=== PATIENT | female | born 2000 | race African-American/Black ===

== ENCOUNTER 2020-11-26 11:12 | Emergency (ER) | payer OTHER, SELFPAY ==
--- NOTE | ~2020-11-26 | CT_ITS ---
EXAMINATION: CT brain wo con DATE: 11/26/2020 13:24 INDICATION: New onset left headaches. Dizziness. TECHNIQUE: Computed tomography (CT) of the head was performed without intravenous contrast. The mA wa s adjusted according to patient size. Iterative reconstruction technique was employed. Exam dose: 60 5.33 mGy-cm total exam DLP. COMPARISON: None FINDINGS: No intracranial mass lesion or hemorrhage or cerebrovascular accident. No midline shift or mass effect. Normal ventricular size. Normal black-white matter differentiation. No subdural or epidur al hematoma. Mastoid air cells and included paranasal sinuses are normally developed and aerated. No fracture or bone destruction of the cranial vault. Orbital contents are unremarkable. IMPRESSION: Negative examination Reviewed, dictated and finalized at [facility]. Reviewed, dictated and finalized at [facility]. IMPRESSION: Negative examination
[2020-11-26 11:29] VITALS: BP 125/75; PULSE 87; RESP 20; TEMP 36.7; O2SAT 100
--- NOTE | 2020-11-26 13:30 | ED.HA ---
HPI - Headache General Chief Complaint: Headache Stated Complaint: dizzy and headaches for a year, angry at people Time Seen by Provider: 11/26/20 12:50 Source: patient Mode of arrival: ambulatory Limitations: no limitations History of Present Illness HPI Narrative: 20-year-old female No significant past medical history Complains of near daily headaches for several months The episodes sometimes have been known to resolve then return on the same days She has not identified any triggers She does take Tylenol which sometimes helps She wears strong corrective lenses and had her eyes checked and was told everything was okay there She does not have a reliable classic migraine aura but does sometimes feel a little dizzy before the onset of headaches They do appear to be quite reliable in terms of starting around the left eye Sometimes there is little nausea but she has never vomited, she has a little light sensitivity but not too bad No fever or neck pain, no recent weight gain, does not complain of allergy or sinus problems Related Data Allergies Allergy/AdvReac Type Severity Reaction Status Date / Time No Known Allergies Allergy Verified 11/26/20 12:50 Review of Systems Review of Systems: All systems reviewed & are unremarkable except as noted in HPI and below Constitutional: Constitutional: Denies chills, Denies fever(s) and Denies headache(s) Eyes: Eyes: Reports change in vision and Reports photophobia ENT: Reports dizziness, Denies headache(s) and Denies sore throat Cardiovascular: Cardiovascular: Denies chest pain and Denies dyspnea Respiratory: Respiratory: Denies cough and Denies dyspnea Gastrointestinal: Gastrointestinal: Reports nausea Genitourinary: Genitourinary: Denies urinary frequency Musculoskeletal: Musculoskeletal: Denies myalgias, Denies deformity and Denies numbness Integumentary/Breasts: Skin/Breast: Denies rash and Denies wounds Neurologic: Denies vertigo, Reports dizziness, Denies syncope, Reports headache(s), Denies focal weakness and Denies numbness Psychiatric: Psychiatric: Reports no additional psychiatric complaints Endocrine: Endocrine: Reports no additional endocrine complaints Hematologic/Lymphatic: Hematologic/Lymphatic: Reports no additional hematologic/lymphatic complaints Allergic/Immunologic: Allergic/Immunologic: Reports no additional allergic/immunologic complaints PMFSH Social History Social History Gender identity (if verbalized by the patient): Female Exam Const: General: cooperative, no acute distress and alert Orientation/consciousness: patient oriented x3 (alert) HENMT: Head: normal to inspection, normocephalic and atraumatic Ears: external ears normal General nose exam: no epistaxis Face and sinus: sinus tenderness (Mild left maxillary sinus tenderness) Eyes: Conjunctivae: conjunctivae normal Pupils: Equal, round and reactive pupils present EOM: EOMs intact bilaterally Neck: Neck: normal visual inspection, no meningeal signs, supple and no JVD Resp: Effort & Inspection: normal respiratory effort Auscultation: clear to auscultation bilaterally and other (BS =) Cardio: Rate: regular rate Rhythm: regular rhythm Heart sounds: no murmurs Skin: General skin exam: normal color and no rashes or lesions noted Rashes: no rashes Neuro: General: patient oriented x3 (alert), moves all extremities, no meningeal signs, no focal motor deficits and CN's II-XI intact bilaterally Speech: normal speech Extrem: General: normal to inspection and no pedal edema Psych: Affect: normal affect Course Vital Signs Vital signs: Vital Signs Temperature 36.7 C 11/26/20 11:29 Pulse Rate 87 11/26/20 11:29 Respiratory Rate 20 11/26/20 11:29 Blood Pressure 125/75 11/26/20 11:29 Pulse Oximetry 100 11/26/20 11:29 Temperature 36.7 C 11/26/20 11:29 Pulse Rate 87 11/26/20 11:29 Respirat
[2020-11-26 14:39] VITALS: BP 126/68; PULSE 80; RESP 18; O2SAT 100
== END 2020-11-26 14:40 | disposition home or self-care (01) ==
PROVIDERS: Emergency Provider Emergency Medicine
DX: R51.9 Headache, unspecified (principal)
CPT/HCPCS: 70450; 99284

== ENCOUNTER 2021-07-24 09:09 | Emergency (ER) | payer OTHER, SELFPAY ==
--- NOTE | ~2021-07-24 | CT_ITS ---
EXAMINATION: CT soft tissue neck w con DATE: 07/24/2021 13:16 INDICATION: Sore throat. TECHNIQUE: Computed tomography (CT) of the neck was performed with 75 mL Omnipaque-350 intravenous co ntrast. Automated exposure control and iterative reconstruction technique were employed. The dose-jaclyn gth product was 611.94 mGy-cm. COMPARISON: None FINDINGS: There is mild bilateral high internal jugular chain lymphadenopathy. For example, a high ri ght internal jugular chain node measures 2.0 x 1.7 cm. There is enlargement of the adenoids and palat ine tonsils. There are areas of relative hypoattenuation in the palatine tonsils, but no well-defined abscess. The cervical carotid arteries are normal. 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 IMPRESSION: 1. Enlargement of the adenoids and palatine tonsils, consistent with inflammation/infection. No absce ss. 2. Mild bilateral high internal jugular chain lymphadenopathy, likely reactive. Reviewed, dictated and finalized at [facility]. [facility]ER IMPRESSION: 1. Enlargement of the adenoids and palatine tonsils, consistent with inflammati on/infection. No abscess. 2. Mild bilateral high internal jugular chain lymphadenopathy, likely reactive.
[2021-07-24 09:13] VITALS: BP 124/92; PULSE 117; RESP 18; TEMP 37.3; O2SAT 100
[2021-07-24 09:55] LABS: Basophils Percent Auto 0.3 % (0.2-1.2); Eosinophils Absolute Auto 0.1 K/mm3 (0-0.3); Hemoglobin 12.3 g/dL (12.0-15.0); Immature Granulocyte Absolute 0.05 K/mm3 (0.00-0.031); Immature Granulocyte Percent A 0.4 % (0-0.5); Lymphocytes Absolute Auto 2.54 K/mm3 (0.9-3.2); Lymphocytes Percent Auto 22.1 % (18.3-44.2); Mean Corpuscular HGB Conc 32.4 g/dl (32-36); Mean Corpuscular Hemoglobin 26.6 pg (26-34); Mean Corpuscular Volume 82.3 fl (80-100); Mean Platelet Volume 9.2 fl (7.4-10.4); Monocytes Absolute Auto 1.1 K/mm3 (0.1-0.6); Monocytes Percent Auto 9.8 % (2.6-8.5); Neutrophils Absolute Auto 7.6 K/mm3 (1.3-6.7); Neutrophils Percent Auto 66.4 % (45.5-73.1); Platelet Count Result 315 k/mm3 (150-375); Red Blood Count 4.62 M/mm3 (4.2-5.4); Red Cell Distribution Width 13.8 % (11.5-14.5); White Blood Count 11.5 K/mm3 (4.5-10.0)
--- NOTE | 2021-07-24 09:57 | ED.GENADULT ---
HPI - General Adult General Chief complaint: Upper Respiratory Infection Stated complaint: Sore Throat Time Seen by Provider: 07/24/21 09:14 Source: patient Mode of arrival: ambulatory Limitations: no limitations History of Present Illness HPI narrative: Patient is a 20-year-old female with chief complaint of sore throat, voice changes over the past 3 days. Patient reports that her symptoms originally began on around June 25 and she was seen in urgent care and told that she tested positive for strep and negative for mono. Patient reports that she was on antibiotics for 10 days and her symptoms did improve, but have now worsened again. Patient denies any fever, chills, shortness of breath, chest pain, nausea, vomiting or diarrhea. Patient reports history of recurrent strep or peritonsillar abscesses. Patient denies having any allergies to any antibiotics or. Patient denies chance of . Related Data Allergies Allergy/AdvReac Type Severity Reaction Status Date / Time No Known Allergies Allergy Verified 07/24/21 09:18 Review of Systems Review of Systems: CONSTITUTIONAL: Denies fever, chills, or sweats. EYES: Denies visual changes, redness, or discharge. ENT: Reports sore throat and voice changes denies rhinorrhea, congestion, or otalgia. CARDIOVASCULAR: Denies chest pain, palpitations, or edema. RESPIRATORY: Denies cough or dyspnea. GASTROINTESTINAL: Denies abdominal pain, nausea, vomiting, or diarrhea. GENITOURINARY: Denies dysuria or hematuria. SKIN: Denies rash or itching. MUSCULOSKELETAL: Denies back pain, joint pain, or myalgia. NEUROLOGIC: Denies headache, numbness, dizziness, or weakness. PSYCHIATRIC: Denies anxiety or depression. [facility] Social History Social History Gender identity (if verbalized by the patient): Female Exam Narrative: GENERAL: Well-appearing, well-nourished, and in no acute distress. HEAD: Normocephalic, atraumatic. EYES: PERRLA and EOMI. ENT: Nares clear, no rhinorrhea or epistaxis. Mucous membranes moist. Oropharynx with tonsillar hypertrophy and exudate right greater than left with tonsillar swelling. Patient is handling her own secretions. muffled voice noted. NECK: Supple. Adenopathy present bilaterally right greater than left. Range of motion intact. CHEST: Clear to auscultation. No respiratory distress. No wheezes rales or rhonchi HEART: Regular rate and rhythm. EXTREMITIES: Normal range of motion. No edema. SKIN: Warm, dry, no rash. NEURO: No focal deficits. Alert and oriented x3. PSYCH: Normal mood and affect. Course Vital Signs Vital signs: Vital Signs Temperature 99.1 F 07/24/21 09:13 Pulse Rate 117 H 07/24/21 09:13 Respiratory Rate 18 07/24/21 09:13 Blood Pressure 124/92 H 07/24/21 09:13 Pulse Oximetry 100 07/24/21 09:13 Temperature 99.1 F 07/24/21 09:13 Pulse Rate 103 H 07/24/21 10:05 Respiratory Rate 20 07/24/21 10:05 Blood Pressure 115/83 07/24/21 10:05 Pulse Oximetry 100 07/24/21 10:05 Medical Decision Making MDM Narrative Medical decision making narrative: Patient pulled out her IV and told the nurse that she has to leave because her ride is leaving. I explained that she would have to sign out AMA if she insisted on leaving because I am concerned for GLASS BENDER which could complicate her airway or cause worsening systemic infection. She reports she will contact her ride to bring her her house treviño and she agrees to stay. HOLLY Cordero will place new IV as patient removed it herself. We were able to replace IV via ultrasound. Patient CT does not show signs of clear abscess. Consult Dr. Carey ENT regarding patient presentation, history, lab work, imaging.He reviewed patient CT and He states that the patient should be on 300 mg of clindamycin 3 times daily and a Medrol Dosepak. Give her a dose of clindamycin in ER to be safe. Patient already given decadron. If she has any emergent symptoms
[2021-07-24 10:01] LABS: Alanine Aminotransferase 24 U/L (4-35); Albumin Level 4.5 g/dL (3.5-5.1); Alkaline Phosphatase 74 U/L (38-126); Anion Gap 8 mmol/L (8-16); Aspartate Amino Transferase 28 U/L (14-36); Bilirubin,Total 0.5 mg/dL (0.2-1.3); Blood Urea Nitrogen 9 mg/dL (7-17); Calcium 9.6 mg/dL (8.4-10.2); Carbon Dioxide 26 mmol/L (22-30); Chloride 100 mmol/L (98-107); Estimated CRCL calculation 168 ml/min; Estimated Glomerular Filt Rate > 60; Glucose 101 mg/dL (65-110); Potassium 3.8 mmol/L (3.4-5.0); Sodium 134 mmol/L (137-145)
[2021-07-24 10:05] VITALS: BP 115/83; PULSE 103; RESP 20; O2SAT 100
[2021-07-24 10:14] LABS: Monoscreen Negative (Negative); Negative Monotest Control Negative (Negative); Positive Monotest Control Positive (Positive)
[2021-07-24 11:41] LABS: Lactic Acid Reflex 0.7 mmol/L (0.7-2.1)
--- NOTE | 2021-07-24 12:31 | PC.NURSE ---
Pt with muffled voice, significant tonsil swelling bilaterally. Attempted IV access unsuccessfully x 2, will have second RN try. Pt explained need for IV with CT scan and possible further medications, verbalized understanding.
[2021-07-24] MEDS: KETOROLAC 15 MG/ML VIAL (*BKC) IV PUSH (14:00)
[2021-07-24] MEDS: CLINDAMYCIN 300 MG in DEXTROSE 5% IN WATER 50 ML 104 MG IVPB (14:25)
[2021-07-24 15:20] VITALS: BP 126/84; PULSE 99; RESP 17; O2SAT 99
== END 2021-07-24 15:22 | disposition home or self-care (01) ==
PROVIDERS: Physician Assistant; Emergency Provider Emergency Medicine; PCP Family Medicine
DX: J03.90 Acute tonsillitis, unspecified (principal)
CPT/HCPCS: 36415; 70491; 80053; 81025; 83605; 85025; 86308; 87081; 87880; 96365; 96375; 99284; J1100; J1885; Q9967

== ENCOUNTER 2022-03-21 15:51 | Emergency (ER) | payer OTHER, SELFPAY ==
[2022-03-21 15:55] VITALS: BP 123/69; PULSE 104; RESP 16; TEMP 36.6; O2SAT 97
--- NOTE | 2022-03-21 16:35 | ED.GENADULT ---
HPI - General Adult General Chief complaint: Unspecified Stated complaint: think strep is coming Time Seen by Provider: 03/21/22 15:53 History of Present Illness HPI narrative: 21-year-old female presents to the emergency room for evaluation of a sore throat. Patient states I feel like strep is coming on . Patient is also complaining of sinus congestion, postnasal drip, cough. Patient's younger sibling was recently diagnosed with COVID. Related Data Allergies Allergy/AdvReac Type Severity Reaction Status Date / Time No Known Allergies Allergy Verified 03/21/22 15:51 Review of Systems Review of Systems: CONSTITUTIONAL: Denies fever, chills, or sweats. EYES: Denies visual changes, redness, or discharge. ENT: Reports rhinorrhea, congestion, and sore throat CARDIOVASCULAR: Denies chest pain, palpitations, or edema. RESPIRATORY: Denies cough or dyspnea. GASTROINTESTINAL: Denies abdominal pain, nausea, vomiting, or diarrhea. GENITOURINARY: Denies dysuria or hematuria. SKIN: Denies rash or itching. MUSCULOSKELETAL: Denies back pain, joint pain, or myalgia. NEUROLOGIC: Denies headache, numbness, dizziness, or weakness. PSYCHIATRIC: Denies anxiety or depression. [facility] Social History Social History Gender identity (if verbalized by the patient): Female Exam Narrative: GENERAL: Well-appearing, well-nourished, no physical limitations, and in no acute distress. HEAD: Normocephalic, atraumatic. EYES: Conjunctivae normal, PERRLA and EOMI. ENT: External nose normal, Nares clear, no rhinorrhea or epistaxis. Mucous membranes moist. tonsillar hypertrophy +3 tonsillar columns without exudate. External ears normal, bilateral TMs normal bilaterally NECK: Supple. No adenopathy or masses. CHEST: Clear to auscultation. No respiratory distress. No wheezes rales or rhonchi. No tenderness. HEART: Regular rate and rhythm. No murmur heard. Normal peripheral pulses. EXTREMITIES: Normal range of motion. No edema. No clubbing or cyanosis SKIN: Warm, dry, no rash. No noted wounds NEURO: No focal deficits. Alert and oriented x3. MAEW. CN's II-XI intact bilaterally, normal gait PSYCH: Cooperative. Normal mood and affect. Course Vital Signs Vital signs: Vital Signs Temperature 36.6 C 03/21/22 15:55 Pulse Rate 104 H 03/21/22 15:55 Respiratory Rate 16 03/21/22 15:55 Blood Pressure 123/69 03/21/22 15:55 Pulse Oximetry 97 03/21/22 15:55 Temperature 36.6 C 03/21/22 15:55 Pulse Rate 104 H 03/21/22 15:55 Respiratory Rate 16 03/21/22 15:55 Blood Pressure 123/69 03/21/22 15:55 Pulse Oximetry 97 03/21/22 15:55 Medical Decision Making Vital Signs Vital Signs: Vital Signs Temperature 36.6 C 03/21/22 15:55 Pulse Rate 104 H 03/21/22 15:55 Respiratory Rate 16 03/21/22 15:55 Blood Pressure 123/69 03/21/22 15:55 Pulse Oximetry 97 03/21/22 15:55 Temperature 36.6 C 03/21/22 15:55 Pulse Rate 104 H 03/21/22 15:55 Respiratory Rate 16 03/21/22 15:55 Blood Pressure 123/69 03/21/22 15:55 Pulse Oximetry 97 03/21/22 15:55 Lab Data Labs: Lab Results 03/21/22 03/21/22 Range/Units 16:37 16:44 Monoscreen Negative (Negative) SARS-CoV-2 RNA (RT-PCR) Negative Strep Screen Presumptive Negative *(Reference Range: Negative)* Discharge Plan Discharge Clinical Impression: Acute sore throat, Viral illness Patient Disposition: Home, Self-Care Condition: Stable Instructions: Antibiotic Form, Viral Syndrome (ED) Prescriptions: New prednisone 20 mg tablet 40 mg PO DAILY 5 Days Qty: 10 0RF pseudoephedrine HCl 30 mg tablet 30 mg PO Q4-6H PRN (Reason: nasal congestion) Qty: 30 0RF Rx Instructions: DNExceed 4 doses/24h Follow-up/Referrals: Florin León MD [Primary Care Provider] - Time of Disposition: 18:16
[2022-03-21 17:20] LABS: Monoscreen Negative (Negative); Negative Monotest Control Negative (Negative); Positive Monotest Control Positive (Positive)
[2022-03-21 17:34] LABS: SARS-CoV-2 RNA PCR Negative
== END 2022-03-21 18:30 | disposition home or self-care (01) ==
PROVIDERS: Emergency Provider Nurse Practitioner Family; PCP Family Medicine
DX: J02.9 Acute pharyngitis, unspecified (principal); B34.9 Viral infection, unspecified; Z20.822 Contact with and (suspected) exposure to COVID-19
CPT/HCPCS: 36415; 86308; 87081; 87880; 96372; 99283; C9803; J1100; U0003; U0005

== ENCOUNTER 2023-04-28 15:06 | Emergency (ER) | payer OTHER, SELFPAY ==
--- NOTE | ~2023-04-28 | CT_ITS ---
EXAMINATION: CT brain wo con DATE: 04/28/2023 17:34 INDICATION: Headache. TECHNIQUE: Computed tomography (CT) of the head was performed without intravenous contrast. The mA wa s adjusted according to patient size. Iterative reconstruction technique was employed. The dose-lengt h product was 605.33 mGy-cm. COMPARISON: Head CT 11/26/2020 FINDINGS: There is no intracranial hemorrhage, acute infarction, or abnormal intracranial mass lesion . The ventricles are normal in size. There is an empty sella. There is mild mucosal thickening in the ethmoid sinuses. The mastoid air cells are normal. IMPRESSION: 1. Empty sella. Reviewed, dictated and finalized at [facility]. IMPRESSION: 1. Empty sella.
[2023-04-28 15:09] VITALS: BP 109/74; PULSE 85; RESP 16; TEMP 36.9; O2SAT 100
[2023-04-28 17:05] VITALS: BP 128/81; PULSE 84; RESP 17; O2SAT 100
--- NOTE | 2023-04-28 17:12 | ED.HA ---
HPI - Headache General Chief Complaint: Headache Stated Complaint: headache Time Seen by Provider: 04/28/23 17:03 History of Present Illness HPI Narrative: 22-year-old female, LMP 3 to 4 weeks ago reports for evaluation of a headache since she woke up this morning at 6 AM. Patient reports the headache as pressure and states feels like my head is going to explode . She reports the headache is in the frontal lobe and occiput with associated photophobia. She denies congestion, cough, fever, neck pain or nuchal rigidity, chest pain or shortness of breath, nausea, vomiting, diarrhea, abdominal pain. Denies recent injury or trauma, vision changes, focal numbness or weakness. Related Data Allergies Allergy/AdvReac Type Severity Reaction Status Date / Time No Known Allergies Allergy Verified 04/28/23 17:06 Review of Systems Review of Systems: CONSTITUTIONAL: Denies fever, chills EYES: Denies visual changes, redness, or discharge. ENT: Denies rhinorrhea, congestion, sore throat, or otalgia. CARDIOVASCULAR: Denies chest pain, palpitations, or edema. RESPIRATORY: Denies cough or dyspnea. GASTROINTESTINAL: Denies abdominal pain, nausea, vomiting, or diarrhea. GENITOURINARY: Denies dysuria or hematuria. SKIN: Denies rash or itching. MUSCULOSKELETAL: Denies back pain, joint pain, or myalgia. NEUROLOGIC: See HPI PSYCHIATRIC: Denies anxiety or depression. [facility] Social History Social History Gender identity (if verbalized by the patient): Female Exam Narrative: GENERAL: Well-appearing, in no acute distress. HEAD: Normocephalic EYES: PERRLA ENT: Nares clear. Mucous membranes moist. Oropharynx without tonsillar hypertrophy exudate or other lesions. NECK: Supple. No nuchal rigidity. CHEST: No respiratory distress. Clear to auscultation, no adventitious breath sounds. HEART: Regular rate and rhythm. No murmur heard. Normal peripheral pulses. ABDOMEN: Soft, nontender, normal active bowel sounds. EXTREMITIES: Normal range of motion. No edema. SKIN: Warm, dry, no rash. NEURO: No focal deficits. Alert and oriented x3. Cranial nerves II through XII intact. Strength 5/5 in BUE and BLE. Sensation intact throughout. Normal finger-nose. No pronator drift. Ambulatory without ataxia PSYCH: Normal mood and affect. Course Vital Signs Vital signs: Vital Signs Temperature 98.5 F 04/28/23 15:09 Pulse Rate 85 04/28/23 15:09 Respiratory Rate 16 04/28/23 15:09 Blood Pressure 109/74 04/28/23 15:09 Pulse Oximetry 100 04/28/23 15:09 Oxygen Delivery Room Air 04/28/23 15:09 Temperature 98.5 F 04/28/23 15:09 Pulse Rate 84 04/28/23 17:05 Respiratory Rate 17 04/28/23 17:05 Blood Pressure 128/81 04/28/23 17:05 Pulse Oximetry 100 04/28/23 17:05 Oxygen Delivery Room Air 04/28/23 15:09 MDM - Headache MDM Narrative Medical decision making narrative: MSE by GUERRERO in triage. 22 y/o F reports for evaluation of tension type headache. Vitals are stable. No red flag headache signs. Given no prior history of headaches, CT brain obtained showing an empty sella. Patient received a headache cocktail. Prior to discussing imaging results, the patient eloped. I was unable to discuss CT results or provide discharge paperwork. I was also unable to discuss follow-up or ED return precautions. Lab Data Labs: UCG Bedside Result Negative Reference Range: Negative Discharge Plan Discharge Clinical Impression: Tension headache, Empty sella Patient Disposition: Elopement After Seen by Prov Condition: Stable Prescriptions: No Action prednisone 20 mg tablet 40 mg PO DAILY 5 Days Qty: 10 0RF pseudoephedrine HCl 30 mg tablet 30 mg PO Q4-6H PRN (Reason: nasal congestion) Qty: 30 0RF Rx Instructions: DNExceed 4 doses/24h Follow-up/Referrals: UNK
[2023-04-28] MEDS: KETOROLAC 30 MG/ML VIAL (*BKC) IV PUSH (17:22)
[2023-04-28] MEDS: PROCHLORPERAZINE EDISYLATE 10 MG/2 ML VIAL IV PUSH (17:22)
[2023-04-28] MEDS: diphenhydrAMINE HCl INJ 50 MG/ML VIAL 12.5 MG IV PUSH (17:23)
== END 2023-04-28 18:08 | disposition left against medical advice (07) ==
LOC: ANHED 18:22
PROVIDERS: Emergency Provider Physician Assistant
DX: G44.209 Tension-type headache, unspecified, not intractable (principal); E23.6 Other disorders of pituitary gland
CPT/HCPCS: 70450; 81025; 96374; 96375; 99284; J0780; J1200; J1885

== ENCOUNTER 2023-08-06 10:27 | Emergency (ER) | payer OTHER, SELFPAY ==
--- NOTE | ~2023-08-06 | CT_ITS ---
Non-contrast Head CT History: Headache COMPARISON: 04/28/2023 Technique: Axial non-contrast imaging of the brain was performed. Dose reduction technique was used on this scan by utilizing automated exposure control and iterative reconstruction technique. The dose -length product (DLP) was 605.33 mGy-cm. Findings: There is no evidence of intracranial hemorrhage, mass lesion, or acute infarct. Brain par enchyma appears normal. The ventricles and subarachnoid spaces are normal in size. The calvarium ap pears normal. The visualized paranasal sinuses and mastoid air cells are clear. Impression: No significant abnormality seen. Reviewed, dictated and finalized at [facility]. [facility] Impression: No significant abnormality seen.
[2023-08-06 10:47] VITALS: BP 114/47; PULSE 85; RESP 18; TEMP 36.9; O2SAT 100
--- NOTE | 2023-08-06 12:49 | ED.HA ---
HPI - Headache General Chief Complaint: Headache Stated Complaint: headache Time Seen by Provider: 08/06/23 12:11 Source: patient Mode of arrival: ambulatory Limitations: no limitations History of Present Illness HPI Narrative: This is a 22 year old female that presents to the ER for headache. Ongoing over the last 3 days. Reports a pressure like headache. Associated with nausea and vomiting. No recent injuries or trauma. Patient also endorsing some fatigue. Denies fever, vision changes, numbness or weakness. Related Data Allergies Allergy/AdvReac Type Severity Reaction Status Date / Time No Known Allergies Allergy Verified 08/06/23 12:51 Review of Systems Review of Systems: CONSTITUTIONAL: Denies fever EYES: Denies visual changes GASTROINTESTINAL: Reports nausea, vomiting All systems reviewed & are unremarkable except as noted in HPI and below PMFSH Past Medical History Medical History (Updated 08/06/23 @ 14:48 by Erika Rondon PA-C) No active medical problems Social History Social History (Updated 08/06/23 @ 12:58 by Erika Rondon PA-C) Smoking status: Never smoker Substance use: never Exam Narrative: GENERAL: Well-appearing, well-nourished, and in no acute distress. HEAD: Normocephalic, atraumatic. EYES: PERRLA and EOMI. ENT: Nares clear, no rhinorrhea or epistaxis. Mucous membranes moist. Oropharynx without tonsillar hypertrophy exudate or other lesions. Bilateral TMs pearly black non-bulging NECK: Supple. No adenopathy or masses. CHEST: Clear to auscultation. No respiratory distress. No wheezes rales or rhonchi HEART: Regular rate and rhythm. No murmur heard. Normal peripheral pulses. EXTREMITIES: Normal range of motion. No edema. Strength equal in bilateral upper and lower extremities (5/5) SKIN: Warm, dry, no rash. NEURO: No focal deficits. Alert and oriented x3. Cranial nerves 2-12 grossly intact PSYCH: Normal mood and affect Course Course Emergency Course: Patient updated on her workup. Resting comfortably Vital Signs Vital signs: Vital Signs Temperature 98.4 F 08/06/23 10:47 Pulse Rate 85 08/06/23 10:47 Respiratory Rate 18 08/06/23 10:47 Blood Pressure 114/47 L 08/06/23 10:47 Pulse Oximetry 100 08/06/23 10:47 Oxygen Delivery Room Air 08/06/23 10:47 Temperature 98 F 08/06/23 14:20 Pulse Rate 90 08/06/23 14:20 Respiratory Rate 18 08/06/23 14:20 Blood Pressure 114/83 08/06/23 14:20 Pulse Oximetry 99 08/06/23 14:20 Oxygen Delivery Room Air 08/06/23 10:47 MDM - Headache MDM Narrative Medical decision making narrative: This is a 22-year-old female that presents to the emergency department for headache ongoing over the last couple of days. Patient also endorsing fatigue. She is afebrile and nontoxic appearing. Her vitals are stable. CBC and metabolic panel without concerning findings. TSH is normal. CT brain without acute findings. Patient reports relief with IV fluids and Tylenol. Patient was instructed to have follow-up with primary provider. She was given warnings to return to the ER Differential Diagnosis Differential diagnosis: Likely migraine, tension headache and subarachnoid hemorrhage Lab Data Attestation: I reviewed the patient's lab results. 08/06/23 13:01 08/06/23 13:01 Labs: Lab Results 08/06/23 Range/Units 13:01 WBC 7.2 (4.5-10.0) K/mm3 RBC 4.77 (4.2-5.4) M/mm3 Hgb 12.6 (12.0-15.0) g/dL Hct 39.7 (37.0-47.0) % MCV 83.2 (80-100) fl MCH 26.4 (26-34) pg MCHC 31.7 L (32-36) g/dl RDW 14.3 (11.5-14.5) % Plt Count 349 (150-375) k/mm3 MPV 9.5 (7.4-10.4) fl Immature Gran % (Auto) 0.3 (0-0.5) % Neut % (Auto) 49.9 (45.5-73.1) % Lymph % (Auto) 39.6 (18.3-44.2) % Jerome % (Auto) 7.4 (2.6-8.5) % Eos % (Auto) 2.2 (0-4.4) % Baso % (Auto) 0.6 (0.2-1.2) % Lymph # (Auto) 2.83 (0.9-3.2) K/mm3 Jerome # (Auto) 0.5 (0.1-0.6) K/mm3 Eos # (Aut
[2023-08-06 13:07] LABS: Basophils Percent Auto 0.6 % (0.2-1.2); Eosinophils Absolute Auto 0.2 K/mm3 (0-0.3); Eosinophils Percent Auto 2.2 % (0-4.4); Hematocrit 39.7 % (37.0-47.0); Hemoglobin 12.6 g/dL (12.0-15.0); Immature Granulocyte Absolute 0.02 K/mm3 (0.00-0.031); Immature Granulocyte Percent A 0.3 % (0-0.5); Lymphocytes Absolute Auto 2.83 K/mm3 (0.9-3.2); Lymphocytes Percent Auto 39.6 % (18.3-44.2); Mean Corpuscular HGB Conc 31.7 g/dl (32-36); Mean Corpuscular Hemoglobin 26.4 pg (26-34); Mean Corpuscular Volume 83.2 fl (80-100); Mean Platelet Volume 9.5 fl (7.4-10.4); Monocytes Absolute Auto 0.5 K/mm3 (0.1-0.6); Monocytes Percent Auto 7.4 % (2.6-8.5); Neutrophils Absolute Auto 3.6 K/mm3 (1.3-6.7); Neutrophils Percent Auto 49.9 % (45.5-73.1); Platelet Count Result 349 k/mm3 (150-375); Red Blood Count 4.77 M/mm3 (4.2-5.4); Red Cell Distribution Width 14.3 % (11.5-14.5); White Blood Count 7.2 K/mm3 (4.5-10.0)
[2023-08-06 13:17] LABS: Alanine Aminotransferase 20 U/L (6-35); Albumin Level 4.4 g/dL (3.5-5.1); Alkaline Phosphatase 59 U/L (38-126); Anion Gap 7 mmol/L (8-16); Aspartate Amino Transferase 26 U/L (14-36); Bilirubin,Total 0.4 mg/dL (0.2-1.3); Blood Urea Nitrogen 10 mg/dL (7-17); Calcium 9.4 mg/dL (8.4-10.2); Carbon Dioxide 26 mmol/L (22-30); Chloride 106 mmol/L (98-107); Estimated Glomerular Filt Rate > 60; Glucose 100 mg/dL (65-110); Potassium 3.9 mmol/L (3.4-5.0); Sodium 139 mmol/L (137-145)
[2023-08-06] MEDS: SODIUM CHLORIDE 0.9% IV 1,000 ML 999 ML IV CONT (13:26)
[2023-08-06] MEDS: ACETAMINOPHEN 500 MG TABLET 1000 MG PO (13:26)
[2023-08-06 14:20] VITALS: BP 114/83; PULSE 90; RESP 18; TEMP 36.6; O2SAT 99
[2023-08-06 15:05] LABS: Thyroid Stimulating Hormone Reflex 0.938 uIU/mL (0.465-4.68)
== END 2023-08-06 15:39 | disposition home or self-care (01) ==
PROVIDERS: Emergency Provider Physician Assistant; PCP Pediatrics
DX: R51.9 Headache, unspecified (principal)
CPT/HCPCS: 36415; 70450; 80053; 84443; 85025; 96360; 99284; A9270; J7030

== ENCOUNTER 2024-06-23 10:05 | Emergency (ER) | payer OTHER, SELFPAY ==
--- NOTE | ~2024-06-23 | CT_ITS ---
EXAMINATION: CT abdomen pelvis w con DATE: 06/23/2024 11:41 INDICATION: Pelvic pain TECHNIQUE: Computed tomography (CT) of the abdomen and pelvis was performed with 100 mL Omnipaque-350 intravenous contrast. Automated exposure control and iterative reconstruction technique were employe d. The dose-length product was 1122.36 mGy-cm. COMPARISON: None FINDINGS: Mild discoid atelectasis in the right middle lobe. Heart size is normal. No pericardial or pleural ef fusion. Liver, gallbladder, spleen, pancreas, bilateral adrenal glands and left kidney are normal. Th ere is a small region of hypoenhancement at the lower pole the right kidney. Bladder, uterus and bila teral adnexa are unremarkable. Bowels including the appendix are normal. Small fat-containing umbilic al hernia. No free intraperitoneal gas or fluid. No pathologically enlarged abdominal or pelvic lymph adenopathy. Bones are unremarkable. IMPRESSION: 1. Small region of hypoenhancement at the lower pole of the right kidney suspicious for pyelonephriti s with differential including scarring related to prior infection or infarction. Correlate with urina lysis. No other acute intra-abdominal/pelvic process. Reviewed, dictated and finalized at location A. [facility] IMPRESSION: 1. Small region of hypoenhancement at the lower pole of the right kidney suspic ious for pyelonephritis with differential including scarring related to prior i nfection or infarction. Correlate with urinalysis. No other acute intra-abdomin al/pelvic process.
[2024-06-23 10:20] VITALS: BP 159/74; PULSE 89; RESP 16; TEMP 36.6; O2SAT 98
--- NOTE | 2024-06-23 10:29 | ED_ITS ---
HPI - Abdominal Pain General Chief Complaint: Abdominal Pain Stated Complaint: pelvic pain Time Seen by Provider: 06/23/24 10:28 Source: patient History of Present Illness HPI narrative: 23 YEARS OLD FEMALE COMPLAINING OF SUPRAPUBIC TENDERNESS FOR A WHILE. 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 PATIENT DENIES ANY FEVER, CHILLS, NAUSEA, VOMITING PATIENT REPORT DIARRHEA FOR THE LAST 2 DAYS LIQUID STOOL, UP TO 6 TIMES A DAY FOR 2 DAYS Related Data Allergies Allergy/AdvReac Type Severity Reaction Status Date / Time No Known Allergies Allergy Verified 08/07/23 10:18 Review of Systems 2 Review of Systems: All systems reviewed & are unremarkable except as noted in HPI and below PMFSH Past Medical History Medical History No active medical problems Social History Social History Smoking status: Never smoker Substance use: never Gender identity (if verbalized by the patient): Female Exam 2 Narrative: GENERAL APPEARANCE: WELL-DEVELOPED, WELL-NOURISHED SKIN: NORMAL COLOR HEAD: NORMOCEPHALIC, NONTRAUMATIC EYES: CLEAR CONJUNCTIVA ENT: OROPHARYNX NORMAL, EARS NORMAL, NOSE NORMAL NECK: SUPPLE, NONTENDER CHEST AND RESPIRATORY: AIRWAY PATENT, NO RESPIRATORY DISTRESS, NO ACCESSORY MUSCLE USE HEART: REGULAR RATE/RHYTHM ABDOMEN: SOFT, SLIGHT SUPRAPUBIC TENDERNESS, NO ORGANOMEGALY, QUIET BOWEL SOUNDS MUSCULOSKELETAL: NORMAL RANGE OF MOTION, NONTENDER BACK NEUROLOGIC: ALERT AND ORIENTED ?3, PERSONAL FINANCIAL COUNSELOR IS NORMAL TESTED, NO GROSS MOTOR DEFICIT Course Course Emergency Course: PATIENT PRESENTS WITH SUPRAPUBIC PAIN VITAL SIGNS SHOWING BLOOD PRESSURE 159/74 IMPROVED DOWN TO 135/94 WITHOUT ANY MEDICATIONS PHYSICAL EXAMINATION SHOWING SLIGHT TENDERNESS SUPRAPUBIC AREA OTHERWISE INSIGNIFICANT FINDINGS DIFFERENTIAL DIAGNOSIS INCLUDE URINARY TRACT INFECTION, CONSTIPATION, COLITIS, DIVERTICULITIS, ABDOMINAL WALL MUSCLE PAIN BLOOD WORKUP TODAY INCLUDES CBC, CMP, LIPASE SHOWED NO ACUTE ABNORMALITIES URINALYSIS SHOWED NO EVIDENCE OF INFECTION CT ABDOMEN AND PELVIS IV CONTRAST SHOWED SMALL REGION OF HYPOENHANCEMENT AT THE LOWER POLE OF THE RIGHT KIDNEY SUSPICIOUS FOR PYELONEPHRITIS, SCARRING RELATED TO PRIOR INFECTION OR INFARCTION. I BELIEVE HIGH LIKELY RELATED TO SCARRING SECONDARY TO PRIOR INFECTION. CURRENTLY PATIENT HAVE NO PAIN AT THE FLANK AREA BILATERALLY, URINE IS CLEAN, NO PYELONEPHRITIS AT THIS TIME. PATIENT WAS ADVISED TO TAKE TYLENOL, IBUPROFEN NEEDED AND FOLLOW-UP WITH OBGYN. THE PT WAS DISCHARGED TO HOME.THE PT,S CONDITION UPON DISCHARGE WAS FAIR,EDUCATION WAS PROVIDED TO THE PT IN REFERENCE TO THE FINAL IMPRESSION,DISCHARGE STUDY RESULTS,TREATMENT,PROGNOSIS AND NEED FOR FOLLOW UP . Vital Signs Vital signs: Vital Signs Temperature 36.6 C 06/23/24 10:20 Pulse Rate 89 06/23/24 10:20 Respiratory Rate 16 06/23/24 10:20 Blood Pressure 159/74 H 06/23/24 10:20 Pulse Oximetry 98 06/23/24 10:20 Oxygen Delivery Room Air 06/23/24 10:20 Temperature 36.6 C 06/23/24 10:20 Pulse Rate 85 06/23/24 12:19 Respiratory Rate 16 06/23/24 12:19 Blood Pressure 135/94 H 06/23/24 12:19 Pulse Oximetry 98 06/23/24 12:19 Oxygen Delivery Room Air 06/23/24 10:20 MDM - Abdominal Pain Lab Data 06/23/24 10:52 06/23/24 10:52 Labs: Lab Results 06/23/24 06/23/24 06/23/24 Range/Units 10:51 10:52 10:56 WBC 7.3 (4.5-10.0) K/mm3 RBC 4.74 (4.2-5.4) M/mm3 Hgb 12.8 (12.0-15.0) g/dL Hct 39.5 (37.0-47.0) % MCV 83.3 (80-100) fl MCH 27.0 (26-34) pg MCHC 32.4 (32-36) g/dl RDW 13.7 (11.5-14.5) % Plt Count 318 (150-375) k/mm3 MPV 9.4 (7.4-10.4) fl Immature Gran % (Auto) 0.5 (0-0.5) % Neut % (Auto) 43.3 L (45.5-73.1) % Lymph % (Auto) 44.6 H (18.3-44.2) % [place] % (Auto) 9.3 H (2.6-8.5) % Eos % (Auto) 1.6 (0-4.4) % Baso % (Auto) 0.7 (0.2-1.2) % Lymph # (Auto) 3.25 H (0.9-3.2) K/mm3 [place] # (Auto) 0.7 H (0.1-0.6) K/mm3 Eos # (Auto) 0.1 (0-0.3) K/mm3 Baso # (Auto) 0.1 (0.0-0.1) K/mm3 Abs Immat Gran (auto) 0.04 H (0.00-0.031) K/mm3 Absolute Neuts (auto) 3.1 (1.3-6.7) K/mm3 Absolute Nucleated RBC 0.000 (0.0-0.012) K/mm3 Nucleated RBC % 0.0 (0.0-0.2) % Sodium 136 L (137-145) mmol/L Potassium 4.4 (3.4-5.0) mmol/L Chloride 105 (98-107) mmol/L Carbon Dioxide 29 (22-30) mmol/L Anion Gap 2 L (4-12) mmol/L BUN 12 (7-17) mg/dL Creatinine 0.50 L (0.7-1.0) mg/dL Estim Creat Clear Calc 178 ml/min Estimated GFR > 60 (59 - ) Glucose 90 (65-110) mg/dL Calcium 9.8 (8.4-10.2) mg/dL Total Bilirubin 0.3 (0.2-1.3) mg/dL AST 23 (14-36) U/L ALT 18 (6-35) U/L Alkaline Phosphatase 58 (38-126) U/L Total Protein 8.0 (6.3-8.2) g/dL Albumin 4.3 (3.5-5.1) g/dL Lipase 53 (23-300) U/L Urine Color Yellow (Yellow) Urine Appearance Cloudy H (Clear) Urine pH 7.0 (5.0-9.0) Ur Specific [place] 1.028 (1.001-1.035) Urine Protein Negative (Negative) mg/dL Urine Glucose (UA) Negative (Negative) mg/dL Urine Ketones Negative (Negative) mg/dL Ur Blood (Man) Negative (Negative) Urine Nitrate Negative (Negative) Urine Bilirubin Negative (Negative) Urine Urobilinogen 0.2 (<2.0) mg/dL Leukocyte Esterase Rfl Negative (Negative) BRAVO/UL Urine RBC 0-2 (0-2) /hpf Urine WBC 0-5 (0-3) /hpf Ur Squamous Epith Cells Many H (Few) /hpf Urine Bacteria 1+ H /hpf Urine Casts 0-2 POC Urine HCG, Qual Negative (Negative) Imaging Data Radiologist's impression: ITS Impressions Abdomen/Pelvis CT 06/23/24 11:52 IMPRESSION: 1. Small region of hypoenhancement at the lower pole of the right kidney suspicious for pyelonephritis with differential including scarring related to prior infection or infarction. Correlate with urinalysis. No other acute intra- abdominal/pelvic process. Critical Care Time Critical Care Time Critical Care Time: No Discharge Plan Discharge Clinical Impression: Pelvic pain Condition: Stable Instructions: Pelvic Pain in Women (ED) Additional Instructions: RETURN IF SYMPTOMS ARE WORSENING , CALL YOUR FAMILY PHYSICIAN FOR APPOINTMENT, TAKE TYLENOL, IBUPROFEN NEEDED FOR ACHES AND PAIN, CONTINUE HOME MEDICATIONS. Patient Language: Argentine Prescriptions: No Action prednisone 20 mg tablet 40 mg PO DAILY 5 Days Qty: 10 0RF pseudoephedrine HCl 30 mg tablet 30 mg PO Q4-6H PRN (Reason: nasal congestion) Qty: 30 0RF Rx Instructions: DNExceed 4 doses/24h Follow-up/Referrals: Romelia,Tawanda Bolanos MD [Primary Care Provider] - Stand Alone Forms: Work/School Release IP
[2024-06-23 10:58] LABS: BEDSIDEPREGUCG Negative (Negative)
[2024-06-23 10:59] LABS: Basophils Absolute Auto 0.1 K/mm3 (0.0-0.1); Basophils Percent Auto 0.7 % (0.2-1.2); Eosinophils Absolute Auto 0.1 K/mm3 (0-0.3); Eosinophils Percent Auto 1.6 % (0-4.4); Hematocrit 39.5 % (37.0-47.0); Hemoglobin 12.8 g/dL (12.0-15.0); Immature Granulocyte Absolute 0.04 K/mm3 (0.00-0.031); Immature Granulocyte Percent A 0.5 % (0-0.5); Lymphocytes Absolute Auto 3.25 K/mm3 (0.9-3.2); Lymphocytes Percent Auto 44.6 % (18.3-44.2); Mean Corpuscular HGB Conc 32.4 g/dl (32-36); Mean Corpuscular Volume 83.3 fl (80-100); Mean Platelet Volume 9.4 fl (7.4-10.4); Monocytes Absolute Auto 0.7 K/mm3 (0.1-0.6); Monocytes Percent Auto 9.3 % (2.6-8.5); Neutrophils Absolute Auto 3.1 K/mm3 (1.3-6.7); Neutrophils Percent Auto 43.3 % (45.5-73.1); Platelet Count Result 318 k/mm3 (150-375); Red Blood Count 4.74 M/mm3 (4.2-5.4); Red Cell Distribution Width 13.7 % (11.5-14.5); White Blood Count 7.3 K/mm3 (4.5-10.0)
[2024-06-23] MEDS: SODIUM CHLORIDE 0.9% IV 1,000 ML 999 ML IV CONT (11:04)
[2024-06-23 11:07] LABS: Add Urine Microscopic? YES; Appearance Urine Cloudy (Clear); Bacteria Urine 1+ /hpf; Bilirubin Urine Negative (Negative); Blood Urine Negative (Negative); Color Urine Yellow (Yellow); Glucose Urine UA Negative (Negative); Ketones Urine Negative (Negative); Leukocyte Esterase Ur Negative LEU/UL (Negative); Nitrate Urine Negative (Negative); Non Pathogenic Casts 0-2; Protein Urine Negative (Negative); RBC Urine 0-2 /hpf (0-2); Specific Grav Ur 1.028 (1.001-1.035); Squamous Epithelial Cell Urine Many /hpf (Few); Urobilinogen Urine 0.2 mg/dL (<2.0); WBC Urine 0-5 /hpf (0-3)
[2024-06-23 11:23] LABS: Alanine Aminotransferase 18 U/L (6-35); Albumin Level 4.3 g/dL (3.5-5.1); Alkaline Phosphatase 58 U/L (38-126); Anion Gap 2 mmol/L (4-12); Aspartate Amino Transferase 23 U/L (14-36); Bilirubin,Total 0.3 mg/dL (0.2-1.3); Blood Urea Nitrogen 12 mg/dL (7-17); Calcium 9.8 mg/dL (8.4-10.2); Carbon Dioxide 29 mmol/L (22-30); Chloride 105 mmol/L (98-107); Estimated CRCL calculation 178 ml/min; Estimated Glomerular Filt Rate > 60; Glucose 90 mg/dL (65-110); Lipase 53 U/L (23-300); Potassium 4.4 mmol/L (3.4-5.0); Sodium 136 mmol/L (137-145)
[2024-06-23 12:19] VITALS: BP 135/94; PULSE 85; RESP 16; O2SAT 98
== END 2024-06-23 13:07 | disposition home or self-care (01) ==
PROVIDERS: Physician Assistant; Emergency Provider Emergency Medicine; PCP Pediatrics
DX: R10.2 Pelvic and perineal pain (principal); Z87.440 Personal history of urinary (tract) infections; R93.421 Abnormal radiologic findings on diagnostic imaging of right kidney
CPT/HCPCS: 36415; 74177; 80053; 81001; 81025; 83690; 85025; 96360; 99284; J7030; Q9967

== ENCOUNTER 2024-11-24 18:59 | Emergency (ER) | payer OTHER, SELFPAY ==
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
--- OUTSIDE RECORDS SUMMARY | 2024-11-24 19:01 | XMS_ITS | Data Portability ---
Author Organization [facility] Address [address] [place] [address] Care Team Providers Care Mine Car Dispatcher Name Role Phone ADAM MARINO Primary Care Provider [phone] Assessment Encounter Date Assessment Date Assessment LastModified by Organization Details LastModified Time 02/25/2023 02/25/2023 Annual gynecological exam performed. Patient will come back in a year unless there are new symptoms. Not available 02/25/2023 17:37:11 05/19/2024 05/19/2024 Annual gynecological exam performed. Patient will come back in a year unless there are new symptoms. Not available 05/19/2024 16:18:23 Plan of Treatment Reminders Order Date Submit Date Provider Last Modified By Organization Details Last Modified Time Details Appointments None recorded. Lab None recorded. Referral None recorded. Procedures None recorded. Surgeries None recorded. Imaging None recorded. Medication Orders metronidazo le 0.75 % (37.5 mg/5 gram) vaginal gel 2023 024 KARENA [id number], [address] [place], [address], 16:43:27 clindamycin 1 % lotion 2022 023 [id number], [address] [place], [address], 16:20:06 doxycycline hyclate 100 mg tablet 2022 023 tabmoriah [id number], [address] [place], [address], 4 16:20:17 Patient TargetsNo targets recorded. Patient InstructionsNo instructions recorded. Reason for Referral None Reported. Results Created Date Observation Date Name Description Value Unit Range Abnormal Flag Note LastModifiedBy Organization Detail LastModifiedTime 02/26/2002/25/2023 IMAGE GUIDE D PAP, REFLE X HPV IF ASCUS ONLY image guided Pap, reflex HPV ASCUS only SEE RESULT S BELOW CASE REPOR T: Cytol ogy Gynec ologi radha Repor t Case: [id number] Aut[address] moose [place] Provi yolanda: Suman Chris Colle cted: 02/25 1745 REGRINDER Order ing Locat ion: [place] [facility] Recei maribeth: 02/26 0933 First Scree n: Florencia Ruth Speci men: Scree jacobo Pap - Image d, Cervi x STATE MENT OF ADEQU ACY: Satis facto ry for evalu ation Trans forma tion zone compo nent prese nt FINAL DIAGN OSIS: Negat kathie for Intra epith elial Nancy n or Alyce hewitt (NIL) . Shift in maite sugge stive of bacte rial vagin osis. Elect ana mcclain d by Florencia Ruth ica on 2022 at 9:59 AM ----- ----- ----- ----- ----- ----- ----- ----- ----- ----- ----- ----- ----- ----- ----- ----- ----- ---- COMME NT: This speci men was revie wed by a Cytot echno logis t and/o r Patho logis t (as indic ated in this repor t) after evalu ation using the Thinp rep Imagi ng Syste m. CLINI RADHA INFOR MATIO N: Menst rual Statu s: LMP (if appli cable ): Clini radha Histo ry/Pr eviou s Pap: Type of Neopl danny (if appli cable ): Signi fican t Clini radha Findi ngs: Other Histo ry: Hormo mary (if appli cable ): PAP EDUCA CHLOE L NOTE: The Pap Test is a scree jacobo test with an inher ent false negat kathie rate. Liqui d-bas ed sampl ing may decre ase, but will not elimi nely, false negat kathie resul ts. A negat kathie resul t does not precl ude the prese nce and/o r devel opmen t of disea se, since the prese nce of abnor mal cells in the sampl e depen ds on the locat ion of the lesio n and sampl ing techn ique. Kary nued regul ar scree jacobo is the best metho d of cance r preve ntion . If repor laure cytol ogic findi ng do not corre late with physi radha and/o r histo rical findi ngs, furth er inves tigat ion is recom vicki d, as clini yue warra nted. Not Available [facility] (Lab) [address], [place], [address], 02/27/2023 11:02:48 02/26/20 23 02/25/2023 TRICH OMONA S VAGIN YUE (RRNA ) trichomonas vaginalis ribosomal RNA (rrna) Negati ve negati ve Not Available [facility] (Lab) [address], [place], [address], 02/27/2023 11:02:48 02/26/20 23 02/25/2023 CT/GC (VALERY) , THINP REP VIAL chlamydia trachomatis, PCR Negati ve negati ve Not Available [facility] (Lab) [address], [place], [address], 02/27/2023 11:02:49 02/26/20 23 02/25/2023 CT/GC (VALERY) , THINP REP VIAL neisseria gonorrhoeae, PCR Negati ve negati ve Not Available [facility] (Lab) [address], [place], [address], 02/27/2023 11:02:49 05/19/20 24 05/19/2024 IMAGE GUIDE D PAP, REFLE X HPV IF ASCUS ONLY image guided Pap, reflex HPV ASCUS only SEE RESULT S BELOW CASE REPOR T: Cytol ogy Gynec ologi radha Repor t Case: [id number] Autho moose alysia Provi yolanda: Cristiano Crawford MD Colle cted: 05/19 1623 Order ing Locat ion: [place] [facility] [place] Recei maribeth: 05/20 1429 First Scree n: Dyan Aguero een: Shelbi Oakley , [place] Speci men: Oriana centeno Pap - Image d, Cervi x STATE MENT OF ADEQU ACY: Satis facto ry for evalu ation Trans forma tion zone compo osvaldo presty nt ----- ----- ----- ----- ----- ----- ----- ----- ----- ----- ----- ----- ----- ----- ----- ----- ----- ---- FINAL DIAGN OSIS: Negat kathie for Intra epith elial Lesio n or Alyce hewitt ([facility]) . Shift in maite sugge stive of bacte rial vagin osis. Elect ana mcclain d by Shelbi Oakley , [place] on 05/27 at 1:33 PM ----- ----- ----- ----- ----- ----- ----- ----- ----- ----- ----- ----- ----- ----- ----- ----- ----- ---- COMME NT: Slide screty chou manumirza lly due to rejec tion by the Thinp rep Imagi ng Syste m. CLINI RADHA INFOR MATIO N: Menst rual Statu s: LMP (if appli cable ): Clini radha Histo ry/Pr eviou s Pap: Type of Neopl danny (if appli cable ): Signi fican t Clini radha Findi ngs: Other Histo ry: Hormo mary (if appli cable ): PAP EDUCA CHLOE L NOTE: The Pap Test is a scree jacobo test with an inher ent false negat kathie rate. Liqui d-bas ed sampl ing may decre ase, but will not elimi nely, false negat kathie resul ts. A negat kathie resul t does not precl ude the prese nce and/o r devel opmen t of disea se, since the prese nce of abnor mal cells in the sampl e depen ds on the locat ion of the lesio n and sampl ing techn ique. Kary nued regul ar scree jacobo is the best metho d of cance r preve ntion . If repor laure cytol ogic findi ng do not corre late with physi radha and/o r histo rical findi ngs, furth er inves tigat ion is recom vicki d, as clini yue [place] nted. Not Available [facility] (Lab) [address], [place], [address], 05/27/2024 14:36:50 05/19/20 24 05/19/2024 CT/GC (VALERY) , THINP REP VIAL chlamydia trachomatis, PCR Negati ve negati ve Not Available [facility] (Lab) [address] [place], [address], 05/27/2024 14:36:51 05/19/20 24 05/19/2024 CT/GC (VALERY) , THINP REP VIAL neisseria gonorrhoeae, PCR Negati ve negati ve Not Available [facility] (Lab) [address] [place], [address], 05/27/2024 14:36:51 05/19/20 24 05/19/2024 TRICH OMONA S VAGIN YUE (RRNA ) trichomonas vaginalis ribosomal RNA (rrna) Negati ve negati ve Not Available [facility] (Lab) [address], [place], [address], 05/27/2024 14:36:52 Result Notes None recorded. Procedures Surgical History Date Name Laterality Status Provider Name and Address Organization Details Recorded Time 02/25/2023 Date of Last Pap Smear completed Shea Mejia [facility] 05/19/2024 16:21:09 Imaging Results None recorded. Procedure Notes None recorded. Medical Equipment None Reported. Allergies No known drug allergies Medications Name Sig Start Date Stop Date Status Note LastModified by Organization Details LastModified Time metronidazo le 0.75 % (37.5 mg/5 gram) vaginal gel INSERT 1 APPLICATO RFUL VAGINALLY EVERY DAY active Not Available Not Available No t Available ondansetron HCl 4 mg tablet TAKE 1 TABLET BY MOUTH EVERY 8 HOURS 05/19 completed Not Available Not Available Not Available prednisone 20 mg tablet TAKE 2 TABLETS BY ORAL ROUTE ONCE DAILY FOR 5 DAYS - TAKE WITH FOOD 05/19 completed Not Available Not Available Not Available amoxicillin 500 mg tablet TAKE 1 TABLET BY MOUTH TWICE A DAY FOR 10 DAYS 05/19 completed Not Available Not Available Not Available sertraline 25 mg tablet TAKE 1 TABLET BY MOUTH EVERY DAY 05/19 completed Not Available Not Available Not Available albuterol sulfate HFA 90 mcg/actuati on aerosol inhaler TAKE 2 PUFFS BY MOUTH EVERY 6 HOURS NEEDED FOR WHEEZE OR FOR SHORTNESS OF BREATH active Not Available Not Available No t Available doxycycline hyclate 100 mg tablet TAKE 1 TABLET BY MOUTH TWICE A DAY WITH MEALS FOR 7 DAYS 05/19 completed Not Available Not Available Not Available dextroamphe tamine-amph etamine 5 mg tablet TAKE 1 TABLET BY MOUTH IN MORNING, AND SECOND TABLET AFTER LUNCH IF NEEDED 30 DAYS 05/19 completed Not Available Not Available Not Available amoxicillin 875 mg-potassiu m clavulanate 125 mg tablet TAKE 1 TABLET BY MOUTH TWO TIMES A DAY X7DAYS 05/19 completed Not Available Not Available Not Available clindamycin 1 % lotion PLEASE SEE ATTACHED FOR DETAILED DIRECTION S 05/19 completed Not Available Not Available Not Available escitalopra m 10 mg tablet TAKE 1 TABLET BY MOUTH EVERY DAY FOR 30 DAYS 05/19 completed Not Available Not Available Not Available Strattera 25 mg capsule TAKE 1 CAPSULE BY MOUTH EVERY DAY FOR 30 DAYS 05/19 completed Not Available Not Available Not Available nitrofurant oin monohydrate /macrocryst als 100 mg capsule active Not Available Not Available Not Available levonorgest rel 1.5 mg tablet USE DIRECTED 05/19 completed Not Available Not Available Not Available guanfacine ER 1 mg tablet,exte nded release 24 hr active Not Available Not Available Not Available Vitals Date Recorded Body height Body mass index (BMI) Body weight Provider Name and Address Organization Details Last Updated DateTime 02/25/2023 167.64 cm 35 kg/m2 27312.54 g Shea Mejia [facility] 02/25/2023 17:38:01 Date Recorded Systolic blood pressure Diastolic blood pressure Provider Name and Address Organization Details Last Updated DateTime 02/25/2023 122 mm[Hg] 80 mm[Hg] Regi Richards, [facility]- [address], [place], [address], [facility] 02/25/2023 18:07:39 Date Recorded Body height Body mass index (BMI) Body weight Systolic blood pressure Diastolic blood pressure Provider Name and Address Organization Details Last Updated DateTime 05/19/2024 167.64 cm 37.9 kg/m2 479113.2 1 g 118 mm[Hg] 78 mm[Hg] Shea Mejia [facility] 16:19:19 Social History Question Answer Notes LastModified by Organizat ion Details LastModified Time Tobacco Smoking Status Never Smoker Shea Mejia [facility] 02/25/2023 17:40:37 Do You Have An Advance Directive? No Information n ot available 05/19/2024 How Many Years Have You Consumed Alcohol? 6 Information not available 05/19/2024 Are You Blind Or Do You Have Difficulty Seeing? No Information n ot available 05/19/2024 What Is Your Level Of Caffeine Consumption? Moderate Information not available 05/19/2024 How Much Tobacco Do You Chew? None Information not available 05/19/2024 In The 14 Days Before Symptom Onset, Have You Had Close Contact With A Laboratory-confirm ed COVID-19 While That Case Was Ill? No Information n ot available 02/25/2023 In The 14 Days Before Symptom Onset, Have You Had Close Contact With A Person Who Is Under Investigation For COVID-19 While That Person Was Ill? No Information not available 02/25/2023 Have You Been To An Area Known To Be High Risk For COVID-19? No Information not available 02/25/2023 Are You Deaf Or Do You Have Serious Difficulty Hearing? No Information not available 05/19/2024 What Type Of Diet Are You Following? REGULAR Information n ot available 05/19/2024 What Is The Highest Grade Or Level Of School You Have Completed Or The Highest Degree You Have Received? [id number] Information not available 05/19/2024 Are There Any Guns Present In Your Home? No Information not available 05/19/2024 Do You Use Protection During Sex? Usually Information not available 05/19/2024 Do You Use Your Seat Belt Or Car Seat Routinely? Yes Information not available 05/19/2024 Do You Have Smoke And Carbon Monoxide Detectors In Your Home? Yes Information not available 05/19/2024 How Much Tobacco Do You Smoke? No Information not available 05/19/2024 Do You Use Sunscreen Routinely? No Information not available 05/19/2024 Have You Used IV Drugs? No Information not available 05/19/2024 Sex: Unknown Functional Status Question Answer Note LastModified by Organizat ion Details LastModified Time Do you use any illicit or recreational drugs? No Information not available 02/25/2023 What is your level of alcohol consumption? Moderate Information not available 05/19/2024 Are you able to walk? 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 None Information not available 05/19/2024 Mental Status Question Answer Note LastModified by Organization D etails LastModified Time Do you feel stressed (tense, restless, nervous, or anxious, or unable to sleep at night)? [id number] Information not available 05/19/2024 Family History Relationship Description Onset Age of this Age Resolved Age Notes LastModified by Organization Details LastModified Time Mother Anemia Not available 17:39:39 Mother Hypercholest erolemia Not available 2022 17:39:48 Mother Hypertensive disorder Not available 2022 17:40:08 Mother Disorder of thyroid gland Not available 2022 17:40:22 Maternal Grandmother Hypercholest erolemia Not available 2022 17:39:56 Maternal Grandmother Hypertensive disorder Not available 2022 17:40:08 Medical History Condition Response Anxiety Disorder Y Neurologic/Epilepsy Y Depression/ depression Y Gynecological History Statement/Question Response Flow Moderate Date of LMP 05/14/2024 On BCP's at Conception? N N Was last menstrual period normal Y STIs/STDs N HPV Vaccine N Duration of Flow (days) 4 Current Control Method None Are cycles usually normal Y Frequency of Cycle (Q days) 28 Sexually Active? Y Unknown Menses Monthly Y Date of Last Pap Smear 02/25/2023 Sexual Problems? N Desired Control Method Unknown LMP Definite N Obstetrics History GPAL:G 0 P 0 0 0 0 Past Encounters Encounter ID Performer Location Encounter Start Date Encounter Closed Date Diagnosis/Indication Diagnosis SNOMED-CT Code Diagnosis ICD10 Code Diagnosis Note [id number] [facility] [address] [address] 02/25/2023 17:09:14 02/26/2023 09:43:05 Gynecologic examination 39351173 Z01.419 Take Calcium with Vitamin D 1200mg daily if not receiving in daily diet. It is strongly advised to have an annual flu shot and up can obtain at most pharmacies . If you have not had a TDap shot in the last 10 years you should obtain one as well. Discussed with patient & provided with informatio n regarding Gardisil vaccine to prevent the 4 strains for HPV that cause cervical cancer if under age 26. Encourage safe sexual practices, to use condoms and limit partners if not already in a monogamous relationsh ip. Do monthly self breast exams. Have mammogram yearly or every other year depending on family history. BRCA testing is now available for patients with strong genetic history of female cancer. If interested contact the office. Engage in daily exercise of low impact aerobic exercise 45-60 minutes 4-5 times weekly. Avoid tobacco and illicit drugs as well as using moderation with alcohol intake less than 1-2 8 oz beverages daily. This lifestyle behavior pattern will lead to less health conditions and longer life span. If BMI greater than 25 weight watchers or dietary consult advised. Patient received above instructio ns, and questions have been answered. If you have any questions please call or respond to this email. Patient was made aware of the patient portal and may obtain a paper copy of today's plan if desired.James diez sentSTD Screen sentGeneti c Screen discussedC olon Screen naDexa Screen naRoutine Labs na Hidradenit is suppurativa [id number] L73.2 Informatio n handout giveIf treatment doesn't help improve will refer to local Derm. [id number] Christ Crawford MD [place] [address] [address] 05/19/2024 16:01:44 05/19/2024 17:09:07 Gynecologic examination [id number] Z01.419 Annual gynecologi radha exam performed. Patient will come back in a year unless there are new symptoms. Suggest Calcium with Vitamin D if not eating in diet. Patient advised to get annual flu shot. Recommend yearly physicals and preform monthly breast exams. Genetic testing is available for patients with family history of cancer. Engage in safe sexual practices, use condoms. Encouraged to have daily exercise. Avoid tobacco and illicit drugs, moderation of alcohol. If BMI greater than 25 dietary consult advised. If you have any questions please call or email. Pap smear- today laboratory evaluation - done Vaginosis - treated Health Concerns Section Related Observation LastModified by Organization Detai ls LastModified Time None Recorded Concern Status LastModified by Organization Details LastModified Time None Recorded Advance Directives Directive N: Payers Encounter Date Sequence Insurance Name Policy Number Policy Romero Covered Member ID Romero Member ID Guarantor Name 02/25/2023 1 [facility] ON OR AFTER 01/11/21 (MEDICAID REPLACEMENT - HMO) Jimmie Vargastz [id number] Jimmie Vargastz 05/19/2024 1 [facility] ON OR AFTER 01/11/21 (MEDICAID REPLACEMENT - HMO) Jimmie Cristy [id number] Jonimirza Cristy Notes Date Note Type Note Provider Name and Address Organization Details Recorded Time 02/25/2023 text/html Annual GYNReport ed bypatient.History: no gynecologic complaints Menstrual cycle:Normal menses Urinary symptoms:No hematuria; No incontinence Vulva:No genital lesion Vagina:Normal vaginal discharge Breast:No breast pain; No breast lump; No nipple discharge Current Contraception:Cond oms Sexual complaints:No sexual complaints; No pain during intercourse; Normal libido Menopausal Symptoms:No menopausal symptoms; Normal vaginal lubrication Psychological symptoms:No depression; No anxiety; No PMDD Preventive measures:Encourage self breast examination; Encourage regular exercise; Encourage no tobacco use; Encourage regular mammograms starting age 40 [facility] [address], [place], [address], [facility] 02/25/2023 18:09:01 05/19/2024 text/html Annual GYNReport ed bypatient.History: mood changes and craves excess food. Menstrual cycle:Normal menses Urinary symptoms:No hematuria Vulva:hydradenitis Vagina:Foul-smelli ng Breast:No breast pain; No breast lump Current Contraception:Yu h control not practiced Sexual complaints:No sexual complaints; No pain during intercourse Menopausal Symptoms:No menopausal symptoms; Normal vaginal lubrication Psychological symptoms:No depression;Anxiety ; Not treated Preventive measures:Encourage self breast examination; Encourage regular exercise Christ Crawford MD [address], [place], [address], [facility] 05/19/2024 16:49:25 OBGyn Episode No OBEpisode recorded.
--- OUTSIDE RECORDS SUMMARY | 2024-11-24 19:01 | XMS_ITS | Referral Summary ---
Author Organization [facility] [address] Address [facility] [place] [address] Care Team Providers Care Pediatrician Managing Partner Name Role Phone Jose Tinsley MD Primary Care Provider [phone]- [phone] Encounters Date Type Department Care Team Description 11/01/2024 Telephone [facility] Medical Group Virtual Care [address] [place] [address] Lisette Smiley Virtual Care Appointment 11/01/2024 Patient Self-Triage [facility] HealthCare/ Physicians [address] [place] [address] Mychart, Generic Provider from Last 3 Months Allergies No known active allergies Medications clindamycin (CLEOCIN T) 1 % lotion Apply topically 2 (two) times a day Active albuterol HFA (Proventil HFA) 90 mcg/actuation inhaler Inhale 2 puffs every 6 (six) hours as needed for wheezing or shortness of breath 6.73 each 4 4 Active Active Problems Problem Noted Date Diagnosed Date Empty sella 04/02/2024 ADHD (attention deficit hype ractivity disorder), combined type 04/02/2024 Anxiety 04/02/2024 Chronic migraine without aura, not intractable 0 04/02/2024 Encounter to establish care 04/02/2024 Assessment & Plan (04/02/2024 11:57 AM CDT): A(n) initial well visit to establish care has been performed today. Jimmie Muniz is not up to date on screening tests. She is in need of viral hepatitis, Cholesterol screening, and Cervical cancer screening. She is not up to date on needed preventative vaccinations; She is in need of Influenza and HPV. We discussed healthy lifestyle habits, educational material has been given. Medications reviewed, changes documented as per the medical record and discussed with patient along with risks vs benefits. Specific topics reviewed: drugs, ETOH, and tobacco, importance of regular dental care, importance of regular exercise, importance of varied diet, limit TV, media violence, minimize junk food, and seat belts. Return in 6 weeks Class 2 obesity due to exces s calories without serious comorbidity with body mass index (BMI) of 36.0 to 36.9 in adult 04/02/2024 Assessment & Plan (04/02/2024 12:00 PM CDT): BMI Follow-up includes: nutrition counseling, exercise counseling, and education provided. Immunizations Immunization Administration Dates Next Due DTaP 03/11/2003,10/07/2000,06/25/2000 HPV9 09/05/2009 Hep A, Ped Unspecified 09/05/2009 Hep A, Pediatric 04/29/2011,06/25/2010 Hep B / HiB 03/11/2003,10/07/2000,06/25/2000 IPV 09/05/2009, 7,03/11/2003,10/07,06/25/2000 Influenza, Quadrivalent, Spl it, Intramuscular 04/29/2011 MMR 09/05/2009,10/07/2000 Meningococcal B, unspecified 04/29/2011 Meningococcal MCV4, Unspecified 04/29/2011 Tdap 09/05/2009 Varicella 09/05/2009,08/20/2006,03/11/2003 Social History Tobacco Use Types Packs/Day Years Used Date Smoking Tobacco: Never Smokeless Tobacco: Never AUDIT-C Answer Date Recorded Q1: How often do you have a drink containing alc ohol? 2-4 times a month 04/02/2024 Q2: How many drinks containi ng alcohol do you have on a typical day when you are drinking? 7 to 9 04/02/2024 Q3: How often do you have si x or more drinks on one occasion? 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 Not on file Not on file Not on file Last Filed Vital Signs Vital Sign Reading Time Taken Comments Blood Pressure 110/70 05/14/2024 12:23 PM CDT Pulse 94 05/14/2024 12:23 PM CDT Temperature 36.8 C (98.3 F) 05/14/2024 11:53 AM CDT Respiratory Rate 18 05/14/2024 11:53 AM CDT Oxygen Saturation 99% 05/14/2024 12:23 PM CDT Inhaled Oxygen Concentration - - Weight 106.6 kg (235 lb) 05/14/2024 11:53 AM CDT Height 167.6 cm (5' 6 ) 05/14/2024 11:53 AM CDT Body Mass Index 37.93 05/14/2024 11:53 AM CDT Plan of Treatment Not on file Procedures Procedure Name Priority Date/Time Associated Diagnosis Comments HEPATITIS C ANTIBODY Routine 04/02/2024 12:11 PM CDT Need for hepatitis C screening test from Last 3 Months or Most Recently Relevant to Health Maintenance Results * Hepatitis C antibody Blood (04/02/2024 12:11 PM CDT) Hep C Ab Nonreactive Nonreactive Comment: Interpretive Data Nonreactive: Antibodies to HCV not detected. Does NOT exclude the possibility of recent exposure to HCV. Equivocal: Equivocal for HCV antibodies. Supplemental molecular testing will be automatically performed to determine infection status in accordance with current CDC screening recommendations. Reactive: Positive for HCV antibodies. This may represent current or past HCV infection. Supplemental molecular testing will be automatically performed to determine current infection status in accordance with current CDC screening recommendations. Interpretive data was last revised on 2019. Blood 04/02/2024 12:1 1 PM CDT 04/02/2024 7:27 PM CDT Jose Tinsley MD LAB MICROBIOLOGY - GENERAL ORDERABLES Final Result Performing Organization Address City/[place] Number [place] [address] [address] Department [place] [address] from Last 3 Months or Most Recently Relevant to Health Maintenance Insurance [facility] Care Teams Pediatrician Managing Partner Relationship Specialty Start Date End Date Jose Tinsley MD [address] [address] PCP - General Family Medicine 04/02/24
--- OUTSIDE RECORDS SUMMARY | 2024-11-24 19:02 | XMS_ITS | Clinical Summary ---
Author Organization [facility] [place] [address] Address [address] [place] [id number] Care Team Providers Care Tuber Operator Name Role Phone Jose Tinsley MD Primary Care Provider [phone] Allergies No known active allergies Medications clindamycin [...] nutrition counseling, exercise counseling, and education provided. Encounters Date Type Department Care Team Description 11/01/[address] [facility] Medical Group Virtual Care [address] [place] [address] Lisette Smiley Virtual Care Appointment 11/01/2024 Patient Self-Triage [facility] HealthCare/ Physicians [address] [place] [address] Mychart, Generic Provider from Last 3 Months Immunizations Immunization Administration Dates Next Due DTaP 03/11/2003,10/07/2000,06/25/2000 HPV9 09/05/2009 Hep A, Ped Unspecified 09/05/2009 Hep A, Pediatric 04/29/2011,06/25/2010 Hep B / HiB 03/11/2003,10/07/2000,06/25/2000 IPV 09/05/2009, 7,03/11/2003,10/07,06/25/2000 Influenza, Quadrivalent, Spl it, Intramuscular 04/29/2011 MMR 09/05/2009,10/07/2000 Meningococcal B, unspecified 04/29/2011 Meningococcal MCV4, Unspecified 04/29/2011 Tdap 09/05/2009 Varicella 09/05/2009,08/20/2006,03/11/2003 Medical History Medical History Date Comments Anxiety Migraines Family History Medical History Relation Name Comments Heart attack Maternal Grandmother Darby Bradley Stroke Maternal Grandmother Darby Bradley Allergy (severe) Mother [place] G Asthma Mother [place] G Goiter Mother [place] G hyperthyroid? 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 Gender Identity Female 04/01/2024 11:26 PM CDT Sexual Orientation Straight 04/01/2024 11 :26 PM CDT Occupation Industry Job Start Date Job End Date clerical Not on file Not on file Not on file Obstetrics History Last Filed Vital Signs Vital Sign Reading [...] 05/14/2024 11:53 AM CDT Plan of Treatment Health Maintenance Due Date Last Done Comments HPV Vaccines (2 - 2-dose series) 03/05/2010 09/05/2009 Cervical Cancer Screening 02/26/2024 02/25/2023 Covid-19 Vaccine ( season) 2024 02/18/2023, 08/01/2021 Influenza Vaccine (Season Ended) 2025 04/29/2011 Regular Well Visit/Exam 18-64 04/02/2025 04/02/2024 Depression Screening 05/14/2025 05/14/2024, 04/02/20 24 DTaP/Tdap/Td Vaccine (5 - Tdap) 07/13/2025 09/05/2009, 03/11/2003, 10/07/2000, Additional history exists Postponed from 09/21/2010 (Insurance / Financial) Hepatitis B Screening Completed 03/11/2003 , 10/07/2000, 06/25/2000 Varicella Vaccines Completed 09/05/2009, 0 08/20/2006, 03/11/2003 Hepatitis C Screening Completed 04/02/2024 Pneumococcal vaccine <65 Aged Out No longer eligible based on patient's age to complete this topic Procedures Procedure Name Priority Date/Time Associated Diagnosis [...] 1 PM CDT 04/02/2024 7:27 PM CDT us Jose Tinsley MD LAB MICROBIOLOGY - GENERAL ORDERABLES Final Result [facility] [id number] Department [place] [address] from Last 3 Months or Most Recently Relevant to Health Maintenance Insurance [facility] Member Subscriber Plan / Payer (Ef fective 2022-Present) Name:Jimmie Muniz Relation to Subscriber:Self Name:Jimmie Muniz Payer ID:[id number] (NAIC) Group ID:Not on file Type:MEDICAID RISK OTHER Address: ATTN: CLAIMS DEPT [address] [facility] [place] [id number] Care Teams Tuber Operator Relationship Specialty [place] [address] [place] [id number] PCP - General Family Medicine 04/02/24
[2024-11-24 19:07] VITALS: BP 112/73; PULSE 81; RESP 16; TEMP 36.4; O2SAT 100
--- NOTE | 2024-11-24 19:24 | ED.GENADULT ---
HPI - General Adult General Chief complaint: Unspecified Stated complaint: brain fog Time Seen by Provider: 11/24/24 19:24 History of Present Illness HPI narrative: This is a 24 year old female presenting ED with chief complaint of brain fog. Patient states that she has been having symptoms such as brain fog twitching of her left eye, emotional lability and frequent crying episodes. She notes she is under significant amount of stress. Her family was fighting. Then her mother tripped and fell striking her head on the ground is currently in the ER for evaluation. Since she was in the ER she wanted to get her symptoms checked out. She had been seen her primary care physician and they were discussion referrals to specialists for further evaluation but she missed the appointment and has not followed up again. She is denying chest pain difficulty breathing abdominal pain nausea vomiting diarrhea. Related Data Allergies Allergy/AdvReac Type Severity Reaction Status Date / Time No Known Allergies Allergy Verified 11/24/24 18:59 PMFSH Past Medical History Medical History No active medical problems Social History Social History Smoking status: Never smoker Substance use: never Gender identity (if verbalized by the patient): Female Exam Narrative: APPEARANCE: Parents patient is tearful and emotional Head: atraumatic. EYES: EOMI, NOSE: Atraumatic NECK: Trachea midline RESPIRATORY: No increased rate of breathing clear to auscultation CARDIOVASCULAR: RRR, peripheral edema ABDOMINAL: Non-distended MUSCULOSKELETAl: No obvious deformities NEURO: Alert. Cranial nerves 2-12 grossly intact. Sensation light touch, motor function cerebellar function intact for 4 extremities. Gait exam was normal. SKIN:: Warm, dry. Normal color PSYCHIATRIC: Normal affect Course Vital Signs Vital signs: Vital Signs Temperature 97.5 F L 11/24/24 19:07 Pulse Rate 81 11/24/24 19:07 Respiratory Rate 16 11/24/24 19:07 Blood Pressure 112/73 11/24/24 19:07 Pulse Oximetry 100 11/24/24 19:07 Oxygen Delivery Room Air 11/24/24 19:07 Temperature 97.5 F L 11/24/24 19:07 Pulse Rate 81 11/24/24 19:07 Respiratory Rate 16 11/24/24 19:07 Blood Pressure 112/73 05/14/25 19:07 Pulse Oximetry 100 11/24/24 19:07 Oxygen Delivery Room Air 11/24/24 19:07 Medical Decision Making [facility] Narrative Medical decision making narrative: -Course: 24-year-old female presenting with multiple chronic symptoms have been exacerbated by stressful situation at home. Vital signs are stable. Her physical exam is normal. No SI or HI. She was screened for life threats and there are no concerning findings history and physical. I believe her best course of action is to follow-up with her primary care physician. I sat the patient length and she is now feeling more calm and stop crying. Patient will be discharged to follow-up with PCP. -DDX includes but is not limited to: Stress reaction, anxiety. Vital Signs Vital Signs: Vital Signs Temperature 97.5 F L 11/24/24 19:07 Pulse Rate 81 11/24/24 19:07 Respiratory Rate 16 11/24/24 19:07 Blood Pressure 112/73 11/24/24 19:07 Pulse Oximetry 100 11/24/24 19:07 Oxygen Delivery Room Air 11/24/24 19:07 Temperature 97.5 F L 11/24/24 19:07 Pulse Rate 81 11/24/24 19:07 Respiratory Rate 16 11/24/24 19:07 Blood Pressure 112/73 11/24/24 19:07 Pulse Oximetry 100 11/24/24 19:07 Oxygen Delivery Room Air 11/24/24 19:07 Discharge Plan Discharge Clinical Impression: Stress Patient Disposition: Home Condition: Stable Instructions: Antibiotic Form, Stress (ED) Additional Instructions: You were seen in the emergency department after a stressful situation. Please follow-up with your primary care physician in regards to your brain fog, eye twitching and emotional lability. If you develop any new or worsening symptoms such as desired harm herself or others, chest pain difficulty breathing you can return to the ED for re-evaluation. Patient Language: Citizen Of [place] Prescriptions: No Action prednisone 20 mg tablet 40 mg PO DAILY 5 Days Qty: 10 0RF pseudoephedrine HCl 30 mg tablet 30 mg PO Q4-6H PRN (Reason: nasal congestion) Qty: 30 0RF Rx Instructions: DNExceed 4 doses/24h Follow-up/Referrals: PHYSICIAN NOT ON STAFF,NONSTAFF [Non-Staff] -
--- OUTSIDE RECORDS SUMMARY | 2024-11-24 19:47 | XMS_ITS | Clinical Summary ---
Author Organization [facility] [place] [address] Address [address] [place] [phone] Care Team Providers Care Business Services Manager Name Role Phone Jose Tinsley MD Primary Care Provider +1- [phone] Allergies No known active allergies Medications clindamycin [...] Type Department Care Team Description 11/01/2024 Telephone [facility] Medical Group Virtual Care [address] [place] [address] Lisette Smiley Virtual Care Appointment 11/01/2024 Patient Self-Triage [facility] HealthCare/ Physicians [address] [place] [address] Mychart, Generic Provider from Last 3 Months [...] on file 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 Member Subscriber Plan / Payer (Ef fective 2022-Present) Name:Jimmie Muniz Relation to Subscriber:Self Name:Jimmie Muniz Payer ID:[id number] (NAIC) Group ID:Not on file Type:MEDICAID RISK OTHER Address: ATTN: CLAIMS DEPT [address] [facility] [place] [phone] Care Teams Business Services Manager Relationship Specialty [place] [address] [place] [id number] PCP - General Family Medicine 04/02/24
--- OUTSIDE RECORDS SUMMARY | 2024-11-24 19:47 | XMS_ITS | Referral Summary ---
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
== END 2024-11-24 20:07 | disposition home or self-care (01) ==
PROVIDERS: Emergency Provider Emergency Medicine; PCP Family Medicine
DX: F43.9 Reaction to severe stress, unspecified (principal)
CPT/HCPCS: 99281